=== PATIENT | male | born 1960 | race Caucasian/White ===

== ENCOUNTER 2022-12-10 03:08 | Emergency (ER) | payer MEDICARE, OTHER, SELFPAY ==
[2022-12-10] VITALS (14 sets, daily range): BP systolic 117–169; BP diastolic 72–107; PULSE 110–135; RESP 16–40; TEMP 36.2; O2SAT 82–98; BMI 33.2
--- NOTE | 2022-12-10 03:28 | CRLHL7_ITS ---
For Patients: As a result of the Century Cures Act, medical imaging exams and procedure reports are released immediately into your electronic medical record. You may view this report before your referring provider. If you have questions, please contact your health care provider. INDICATION: Dyspnea. TECHNIQUE: Chest 1 view. COMPARISON: None. FINDINGS: Cardiovascular and mediastinum: Heart size and vasculature are normal in caliber and appearance. Left-sided dual chamber cardiac pacer. Lungs and pleural spaces: Bilateral scattered interstitial markings. No pleural effusions or pneumothorax. Bones and soft tissues: No significant findings. IMPRESSION: Bilateral scattered interstitial markings, likely reflecting interstitial pulmonary edema. Dictated by Johan Wolfe MD @ 12/10/2022 4:35:33 AM (Electronically Signed)
--- NOTE | 2022-12-10 03:31 | ED.GENADULT ---
HPI - General Adult General Chief complaint: Shortness of Breath/Dyspnea Stated complaint: Trouble Breathing Time Seen by Provider: 12/10/22 03:28 Source: patient and family Mode of arrival: ambulatory Limitations: physical limitation History of Present Illness HPI narrative: 8-year-old male who reports ?cardiac and lung history? presents the emergency department, brought in by family, for evaluation of shortness of breath. He texted his daughter at around 240 this morning reporting shortness of breath, symptoms started shortly beforehand, waking him from sleep. They both report that he ?had a good day? and seemed normal this afternoon. No fever. No injury, trauma or fall. No recent productive cough. Symptoms came on fairly suddenly. He is not able recall is medications for me, reporting any gets his care through [facility]. I of course do not have access to those records. When I asked about history of arrhythmias, cardiac issues, he is not able to elaborate when asked about stents, he does confirm that he has had multiple stents in the past. Denies bypass surgery but does not know of any valvular heart disease structural heart disease or arrhythmias. He does report a history of diabetes, hypertension and heart disease. He does not know his other conditions well enough to list for me. Does have a history of COPD and/or asthma. He is a smoker. He reports that he has had his aspirin within 24 hours. Past medical history is fairly limited by his acute condition and the fact that we do not have any outside records on him. We are attempting to try to get some records through care everywhere via line a. ROS is notable for the respiratory symptoms only, specifically denies chest pain, generalized, HEENT, GI or musculoskeletal changes, otherwise negative times 12 systems. Related Data Home Medications Medication Instructions Recorded Confirmed atorvastatin 80 mg tablet 80 mg PO DAILY 12/10/22 12/10/22 blood sugar diagnostic (Contour 12/10/22 12/10/22 Next Test Strips) clindamycin HCl 300 mg capsule 300 mg PO Q6H 12/10/22 12/10/22 empagliflozin 25 mg tablet 25 mg PO DAILY 12/10/22 12/10/22 (Jardiance) ezetimibe 10 mg tablet 10 mg PO DAILY 12/10/22 12/10/22 famotidine 20 mg tablet 20 mg PO BID 12/10/22 12/10/22 furosemide 20 mg tablet 20 mg PO DAILY 12/10/22 12/10/22 glipizide 10 mg tablet, extended 10 mg PO BID 12/10/22 12/10/22 release 24 hr insulin glargine 100 unit/mL (3 unit subcut 12/10/22 mL) subcutaneous pen (Basaglar KwikPen U-100 Insulin) losartan 100 mg tablet 100 mg PO DAILY 12/10/22 12/10/22 metoprolol succinate 100 mg 100 mg PO DAILY 12/10/22 12/10/22 tablet,extended release 24 hr pen needle, diabetic 31 gauge x 12/10/22 12/10/2204/12 (UltiCare Pen Needle) semaglutide 1 mg/dose (4 mg/3 mL) mg subcut 12/10/22 subcutaneous pen injector (Ozempic) valsartan 80 mg tablet 80 mg PO DAILY 12/10/22 12/10/22 Allergies Allergy/AdvReac Type Severity Reaction Status Date / Time lisinopril Allergy Mild Cough Verified 12/10/22 03:59 metformin AdvReac Intermediate Verified 12/10/22 03:59 bupropion [From Wellbutrin] AdvReac Mild myalgia Verified 12/10/22 03:59 citalopram AdvReac Mild Dizziness Verified 12/10/22 03:59 [facility] Medical History (Updated 12/10/22 @ 05:24 by Gloria Ivory MD) NSTEMI (non-ST elevated myocardial infarction) ?I21.4 - Non-ST elevation (NSTEMI) myocardial infarction (ICD-10) H/O coronary angiogram ?Z98.890 - Other specified postprocedural states (ICD-10) Asthma ?J45.909 - Unspecified asthma, uncomplicated (ICD-10) MRSA (methicillin resistant staph aureus) culture positive ?Z22.322 - Carrier or suspected carrier of Methicillin resistant Staphylococcus aureus (ICD-10) Hypertension ?I10 - Essential (primary) hypertension (ICD-10) Adjustment disorder with depressed mood ?F43.21 - Adjustment disorder with depressed mood (ICD-10) STEVE (obstructive sleep apnea) ?G47.33 - Obstructive sleep apnea (adult) (pediatric) (ICD-10) Benign head tremor ?G25.0 - Essential tremor (ICD-10) Methamphetamine abuse ?F15.10 - Other stimulant abuse, uncomplicated (ICD-10) Asbestos exposure ?Z77.090 - Contact with and (suspected) exposure to asbestos (ICD-10) Diabetes mellitus ?E11.9 - Type 2 diabetes mellitus without complications (ICD-10) Aspiration pneumonia ?J69.0 - Pneumonitis due to inhalation of food and vomit (ICD-10) Heart failure ?I50.9 - Heart failure, unspecified (ICD-10) CAD (coronary artery disease) ?I25.10 - Atherosclerotic heart disease of [place] coronary artery without angina pectoris (ICD-10) Cardiac arrest ?I46.9 - Cardiac arrest, cause unspecified (ICD-10) Surgical History (Updated 12/10/22 @ 04:09 by Dolores Garcia RN) AICD (automatic cardioverter/defibrillator) present ?Z95.810 - Presence of automatic (implantable) cardiac defibrillator (ICD-10) Social History Smoking Status: Current every day smoker Do you use any of these nicotine containing products: None How often do you have a drink containing alcohol: 4 or more times a week How many standard drinks containing alcohol do you have on a typical day: 1 or 2 How often do you have six or more drinks on one occasion: Never AUDIT-C Alcohol total score: 4 Non-prescribed substance use: denies use Exam Const: Vital Signs, click to edit/add: Vital Signs - 24 hr 12/10/22 03:08 12/10/22 04:08 12/10/22 04:16 Temperature 97.2 F L Pulse Rate 115 H 112 H Pulse Rate [Right Pulse Oximeter] 135 H Respiratory Rate 40 H 22 24 Blood Pressure 131/75 123/72 Blood Pressure [Le ft Upper Arm] 169/99 H Pulse Oximetry 82 L 96 96 Oxygen Delivery Me thod Room Air Oxygen Flow Rate 12/10/22 04:31 12/10/22 04:46 12/10/22 05:01 Temperature Pulse Rate 113 H 114 H 111 H Pulse Rate [Right Pulse Oximeter] Respiratory Rate 16 20 20 Blood Pressure 124/79 124/79 140/87 H Blood Pressure [Le ft Upper Arm] Pulse Oximetry 97 98 97 Oxygen Delivery Me thod Oxygen Flow Rate 12/10/22 05:16 12/10/22 05:32 12/10/22 05:41 Temperature Pulse Rate 111 H 115 H Pulse Rate [Right Pulse Oximeter] Respiratory Rate 20 18 Blood Pressure 149/107 H 148/90 H Blood Pressure [Le ft Upper Arm] Pulse Oximetry 98 97 95 Oxygen Delivery Me thod Nasal Cannula Oxygen Flow Rate 2 12/10/22 05:46 12/10/22 06:01 12/10/22 06:16 Temperature Pulse Rate 110 H 113 H 116 H Pulse Rate [Right Pulse Oximeter] Respiratory Rate 18 18 18 Blood Pressure 129/77 128/78 139/86 Blood Pressure [Le ft Upper Arm] Pulse Oximetry 95 96 97 Oxygen Delivery Me thod Oxygen Flow Rate 12/10/22 06:32 12/10/22 06:46 Temperature Pulse Rate 114 H 114 H Pulse Rate [Right Pulse Oximeter] Respiratory Rate 18 17 Blood Pressure 125/76 117/77 Blood Pressure [Le ft Upper Arm] Pulse Oximetry 96 96 Oxygen Delivery Me thod Oxygen Flow Rate Documenting provider has reviewed patient's vital signs: yes Common normals: alert Other: Cooperative but appears anxious and pale. Severely dyspneic. HENMT: Common normals: normocephalic and head/scalp atraumatic Head and scalp: normocephalic and atraumatic Face and sinus: normal facial exam Mouth: oral and palatal mucosa normal Throat: posterior oropharynx normal Eye: Common normals: conjunctivae normal General eye: normal appearance of both eyes Conjunctiva: conjunctiva(e) normal Neck & C-Spine: Common normals: full ROM and no lymphadenopathy Chest: Other: Wheezing at the upper lung mendez, decreased lung sounds at the bases. Marked use of accessory muscles, sitting upright, tachypnea. Cardio: Other: Tachycardic but sounds regular. No obvious murmur. GI: Common normals: Normal to inspection, nondistended, normoactive bowel sounds present Other: Non incarcerated umbilical hernia. Bowel sounds normoactive, no mass. Liver not enlarged. Back & Pelvis: Other: Kyphosis noted but no other abnormalities to back. Extremity: Common normals: normal to inspection, normal capillary refill and no joint enlargement Neuro: Sensorium/orientation: alert Motor exam: strength 5/5 throughout and no movement abnormalities noted Other: Essential tremor of hands and face Psych: Attitude: engaged Other: Mild memory impairment, he confirms that this is normal for him. Insight seems fair. Thought process is logical. Cooperative. No agitation. No signs of intoxication Skin: Narrative: Initially pale but this improves rapidly with administration of BiPAP. No bruising or trauma. Course Course Hospital Course: Patient arrived in obvious severe acute hypoxic respiratory failure. Question etiology being cardiac related to ischemia, arrhythmia, valvular heart disease or heart failure. Question pulmonary edema, COPD exacerbation, pneumonia or other etiologies. Apparently patient has had similar symptoms back in 2019. I have had time not to go back and review those notes and see severe COPD exacerbation with suspicion for COVID pneumonia. Notes and discharge summary are fully reviewed was treated with Solu-Medrol. Based on is severe acute presentation, we are starting him on BiPAP. I am within 2 minutes patient had marked improvement in his reported symptoms as well as his tachycardia and hypoxia. Awaiting cardiac workup. Suspect he would benefit from Solu-Medrol, potentially antibiotics. Awaiting chest x-ray and EKG. Reevaluation(s) Time of Reevaluation #1: 04:01 Reevaluation #1: Tachycardia continues to improve. I was able to find some outside records from [facility] showing that the patient actually had a cardiac arrest in September of 2018. He now has an ICD placed which he did not remember and history of V-tach. He had an angioplasty with drug-eluting stent placed at that time he also had critical limb ischemia from complications from the angioplasty that improved after thrombectomy. We do have an outside EKG from that hospitalization which shows sinus rhythm but there is no septal changes like I am seeing today but this was from the [facility] back in 2017. He was tachycardic at that time as well. It looks like the tachycardia is not new as prior hospitalizations certainly documents this as well. Time of Reevaluation #2: 04:41 Reevaluation #2: I have spent the last 40 minutes on hold with [facility] and [facility]. We will not be calling [place] and happen. Patient needs transfer. Spoke with Interventional Cardiology from both of the original facilities and they both agree that he certainly does have the ischemic changes that I note as well in the septal area but is not a true STEMI, which I agree. He does however need cardiology input. Unfortunately, there are no beds available. They both give me advice to continue trending EKGs and if he does meet true STEMI criteria to call back and he would be a candidate for transfer. At this time he is not a candidate for transfer as they do not have bed availability. Male was on full bed divert even for themselves. Cities are on [place] for [employer], [employer], etc.. We will continue calling. I did receive confirmation from both providers I spoke with, both through [facility] and [place] that would be a good idea to treat the pulmonary edema with furosemide and also to start heparin drip. They are also recommending considering a nitroglycerin drip to help with the pulmonary edema if needed. Will continue to pursue transfer. Aligned I did let me put patient on a waiting list, [place] will not. Time of Reevaluation #3: 05:16 Reevaluation #3: Thus far I have spent 75 minutes in transfer. Repeat EKG is stable from the 1 that was taken around 3:00 a.m.. With able to speak with the hydro technician team from [facility], they have accepted patient for transfer, awaiting nurse to nurse call back. I have also spoken with Dr. Romero from the cardiology team. Thus far he is in agreement with our plan. Agrees with the heparin, the furosemide. He would also like for us to try for nitroglycerin drip if the pressures tolerate. I checked in with the patient and he is feeling better. He is agreeable to transfer. Additional Reevaluation(s): 0554: Patient has been weaned off of BiPAP and is tolerating 2 L nasal cannula well, maintaining oxygen saturations. Consultations Consultation #1: Repeat troponin 0.34 from 0.13. Rising as expected with duration of symptoms. Patient definitely needs transfer. Time: 05:24 Vital Signs Vital signs: Initial Vital Signs Temperature 97.2 F L 12/10/22 03:08 Temperature Source Temporal Artery Scan 12/10/22 03:08 Pulse Rate 135 H 12/10/22 03:08 Pulse Rhythm Regular 12/10/22 03:08 Respiratory Rate 40 H 12/10/22 03:08 Blood Pressure 169/99 H 12/10/22 03:08 Blood Pressure Mean 122 H 12/10/22 03:08 Blood Pressure Position Sitting 12/10/22 03:08 Pulse Oximetry 82 L 12/10/22 03:08 Oxygen Delivery Method Room Air 12/10/22 03:08 Vital Signs Temperature 97.2 F L 12/10/22 03:08 Pulse Rate 135 H 12/10/22 03:08 Respiratory Rate 40 H 12/10/22 03:08 Blood Pressure 169/99 H 12/10/22 03:08 Pulse Oximetry 82 L 12/10/22 03:08 Oxygen Delivery Method Room Air 12/10/22 03:08 Temperature 97.2 F L 12/10/22 03:08 Pulse Rate 114 H 12/10/22 06:46 Respiratory Rate 17 12/10/22 06:46 Blood Pressure 117/77 12/10/22 06:46 Pulse Oximetry 96 12/10/22 06:46 Oxygen Delivery Method Nasal Cannula 12/10/22 05:41 Oxygen Flow Rate 2 12/10/22 05:41 Medical Decision Making MDM Narrative Medical decision making narrative: Patient transferred without complication. Lab Data Lab results reviewed: Yes I reviewed the patient's lab results Lab results narrative: Positive troponins, initial blood gases showing mild acidosis, PO2 high as we originally started with high-flow oxygen and then will be transitioning down now. Kidney function, electrolytes are reassuring. AST is suggestive of potentially some underlying alcoholic liver disease. Negative COVID. Elevated troponin. EKG changes noted as below. Note additional elevation of troponins upon repeat. Labs: Lab Results 12/10/22 12/10/22 12/10/22 Range/Units 03:28 03:30 03:54 VBG pH 7.296 L (7.32-7.43) VBG pCO2 27 L (40-50) mmHG VBG pO2 172.0 H (25-47) mmHG VBG HCO3 13 L (21-28) mmol/L Sodium 140 (135-149) mmol/L Potassium 4.3 (3.6-5.1) mmol/L Chloride 109 (96-114) mmol/L Carbon Dioxide 10 L (20-32) mmol/L Anion Gap 21 H (7-15) mEq/L BUN 19 (7-30) mg/dL Creatinine 1.1 (0.5-1.5) mg/dL Estimated Creat Clear 64.44 Estimated GFR 77 ml/min Glucose 344 H (60-115) mg/dL Calcium 9.3 (8.4-10.6) mg/dL Total Bilirubin 1.1 (0.1-1.5) mg/dL Direct Bilirubin 0.1 (0.0-0.5) mg/dL AST 77 H (12-35) U/L ALT 44 (4-50) U/L Alkaline Phosphatase 53 (40-150) U/L Troponin I 0.13 H* (0.01-0.04) ng/mL C-Reactive Protein 1.2 H (0.5-1.0) mg/dL NT-Pro-B Natriuret Pep 1440 pg/mL Total Protein 8.3 (6.0-8.3) g/dL Albumin 4.7 (3.3-5.0) g/dL Urine Color (Yellow) Urine Appearance (Clear) Urine pH (5.0-8.5) Ur Specific [place] (1.000-1.030) Urine Protein (Negative) Urine Glucose (UA) (Negative) Urine Ketones (Negative) Urine Blood (Negative) Urine Nitrite (Negative) Urine Bilirubin (Negative) Urine Urobilinogen (0.2-1.0) Ur Leukocyte Esterase (Negative) Urine RBC (0-2) Urine WBC (0-5) Ur Squamous Epith Cells (None-Few) Urine Bacteria (None) Urine Opiates Screen (Negative) Ur Oxycodone Screen (Negative) Urine Methadone Screen (Negative) Ur Propoxyphene Screen (Negative) Ur Barbiturates Screen (Negative) U Tricyclic Antidepress (Negative) Ur Phencyclidine Scrn (Negative) Ur Amphetamines Screen (Negative) U Methamphetamines Scrn (Negative) U Benzodiazepines Scrn (Negative) Urine Cocaine Screen (Negative) U Marijuana (THC) Screen (Negative) Ur Drug Screen Comment SARS-CoV-2 (PCR) Negative SARS-CoV-2 (Negative) Influenza Type A (PCR) Negative PCR FLU A (Negative) Influenza Type B (PCR) Negative PCR FLU B (Negative) RSV (PCR) Negative PCR RSV (Negative) POC Troponin I 0.13 H (0.01-0.04) ng/ml 12/10/22 12/10/22 Range/Units 05:15 05:20 VBG pH (7.32-7.43) VBG pCO2 (40-50) mmHG VBG pO2 (25-47) mmHG VBG HCO3 (21-28) mmol/L Sodium (135-149) mmol/L Potassium (3.6-5.1) mmol/L Chloride (96-114) mmol/L Carbon Dioxide (20-32) mmol/L Anion Gap (7-15) mEq/L BUN (7-30) mg/dL Creatinine (0.5-1.5) mg/dL Estimated Creat Clear Estimated GFR ml/min Glucose (60-115) mg/dL Calcium (8.4-10.6) mg/dL Total Bilirubin (0.1-1.5) mg/dL Direct Bilirubin (0.0-0.5) mg/dL AST (12-35) U/L ALT (4-50) U/L Alkaline Phosphatase (40-150) U/L Troponin I (0.01-0.04) ng/mL C-Reactive Protein (0.5-1.0) mg/dL NT-Pro-B Natriuret Pep pg/mL Total Protein (6.0-8.3) g/dL Albumin (3.3-5.0) g/dL Urine Color Yellow (Yellow) Urine Appearance Clear (Clear) Urine pH 5.0 (5.0-8.5) Ur Specific [place] 1.015 (1.000-1.030) Urine Protein Trace A (Negative) Urine Glucose (UA) 2+ A (Negative) Urine Ketones Negative (Negative) Urine Blood Trace-intact A (Negative) Urine Nitrite Negative (Negative) Urine Bilirubin Negative (Negative) Urine Urobilinogen 0.2 (0.2-1.0) Ur Leukocyte Esterase Negative (Negative) Urine RBC 0-2 (0-2) Urine WBC 0-2 (0-5) Ur Squamous Epith Cells Few (None-Few) Urine Bacteria None (None) Urine Opiates Screen Negative (Negative) Ur Oxycodone Screen Negative (Negative) Urine Methadone Screen Negative (Negative) Ur Propoxyphene Screen Negative (Negative) Ur Barbiturates Screen Negative (Negative) U Tricyclic Antidepress Negative (Negative) Ur Phencyclidine Scrn Negative (Negative) Ur Amphetamines Screen Negative (Negative) U Methamphetamines Scrn Negative (Negative) U Benzodiazepines Scrn Negative (Negative) Urine Cocaine Screen Negative (Negative) U Marijuana (THC) Screen Negative (Negative) Ur Drug Screen Comment See Note SARS-CoV-2 (PCR) (Negative) Influenza Type A (PCR) (Negative) Influenza Type B (PCR) (Negative) RSV (PCR) (Negative) POC Troponin I 0.34 H (0.01-0.04) ng/ml Imaging Data Chest x-ray: Attestation: I have reviewed the pertinent imaging results. My impression: Pulmonary edema Radiologist's impression: IMPRESSION: Bilateral scattered interstitial markings, likely reflecting interstitial pulmonary edema. ECG Data Attestation: I personally reviewed and interpreted this ECG as follows: Prior ECG tracings: not available for review Interpretation: Sinus tachycardia, rate of 120. There is some mild nonsignificant ST depression in V5 with slight ST elevation in V1, V2 V3. Questioning an early septal infarct.. There is no prior comparison, which is unexpected considering he was previously hospitalized. Critical Care Time Critical Care Time Total Critical Care Time in Minutes: 90 Discharge Plan Discharge Clinical Impression: Acute respiratory failure with hypoxia, Acute Q wave myocardial infarction Patient Disposition: Xfer Other Discharge Location: [facility] Condition: Guarded Prescriptions: No Action atorvastatin 80 mg tablet 80 mg PO DAILY clindamycin HCl 300 mg capsule 300 mg PO Q6H glipizide 10 mg tablet extended release 24hr 10 mg PO BID metoprolol succinate 100 mg tablet extended release 24 hr 100 mg PO DAILY valsartan 80 mg tablet 80 mg PO DAILY (DME) Contour Next Test Strips Strip MISCELLANEOUS famotidine 20 mg tablet 20 mg PO BID furosemide 20 mg tablet 20 mg PO DAILY losartan 100 mg tablet 100 mg PO DAILY (DME) pen needle, diabetic [UltiCare Pen Needle] 31 gauge x 1/4 needle MISCELLANEOUS Patient Comments: [NO ORIGINAL SIG] ezetimibe 10 mg tablet 10 mg PO DAILY insulin glargine [Basaglar KwikPen U-100 Insulin] 100 unit/mL (3 mL) insulin pen subcut Jardiance 25 mg tablet 25 mg PO DAILY Ozempic 1 mg/dose (4 mg/3 mL) pen injector subcut Stand Alone Forms: [facility] Info Instructions
[2022-12-10 03:44] LABS: HCO3 VBG 13 mmol/L (21-28); PCO2 VBG 27 mmHG (40-50); pH VBG 7.296 (7.32-7.43)
[2022-12-10 04:02] LABS: Troponin, Point-of-Care* 0.13 ng/ml (0.01-0.04)
[2022-12-10 04:08] LABS: Albumin* 4.7 g/dL (3.3-5.0); Chloride* 109 mmol/L (96-114); Sodium* 140 mmol/L (135-149)
[2022-12-10 04:09] LABS: Potassium* 4.3 mmol/L (3.6-5.1)
[2022-12-10 04:10] LABS: Creatinine* 1.1 mg/dL (0.5-1.5); Est. Creatinine Clearance* 64.44; Estimated Glomerular Filt Rate 77 ml/min
[2022-12-10 04:11] LABS: Alanine Aminotransferase* 44 U/L (4-50); Alkaline Phosphatase* 53 U/L (40-150); Anion Gap 21 mEq/L (7-15); Aspartate Amino Transferase* 77 U/L (12-35); Bilirubin Direct* 0.1 mg/dL (0.0-0.5); Bilirubin Total* 1.1 mg/dL (0.1-1.5); Blood Urea Nitrogen* 19 mg/dL (7-30); Carbon Dioxide* 10 mmol/L (20-32); Glucose* 344 mg/dL (60-115); Total Protein* 8.3 g/dL (6.0-8.3)
[2022-12-10 04:12] LABS: Calcium* 9.3 mg/dL (8.4-10.6)
[2022-12-10 04:14] LABS: C Reactive Protein* 1.2 mg/dL (0.5-1.0)
[2022-12-10 04:37] LABS: PCR FLU A Negative PCR FLU A (Negative); PCR FLU B Negative PCR FLU B (Negative); PCR RSV Negative PCR RSV (Negative); SARS PCR* Negative SARS-CoV-2 (Negative)
[2022-12-10 04:41] LABS: NT Pro B Type NatriureticPept* 1440 pg/mL
[2022-12-10] MEDS: FUROSEMIDE 10 MG/ML inj 20 MG IVP (04:41)
[2022-12-10 04:46] LABS: Troponin I* 0.13 ng/mL (0.01-0.04)
[2022-12-10] MEDS: HEPARIN 5,000 UNIT/0.5 ML INJ 4000 UNIT IVP (04:47)
[2022-12-10 05:25] LABS: Appearance Urine Clear (Clear); Bilirubin Urine Negative (Negative); Blood Urine Trace-intact (Negative); Color Urine Yellow (Yellow); Glucose Urine 2+ (Negative); Ketones Urine Negative (Negative); Leukocyte Esterase Urine Negative (Negative); Nitrite Urine Negative (Negative); Protein Urine Trace (Negative); Specific Gravity Urine 1.015 (1.000-1.030); Urobilinogen Urine 0.2 (0.2-1.0)
[2022-12-10 05:31] LABS: RBC Urine 0-2 (0-2); Squamous Epithelial Cell Urine Few (None-Few); WBC Urine 0-2 (0-5)
[2022-12-10 05:32] LABS: Amphetamine Screen Urine Negative (Negative); Barbiturate Screen Urine Negative (Negative); Benzodiazepines Screen Urine Negative (Negative); Cannabinoid Screen Urine Negative (Negative); Cocaine Screen Urine Negative (Negative); Methadone Screen Urine Negative (Negative); Methamphetamines Screen Urine Negative (Negative); Opiate Screen Urine Negative (Negative); Oxycodone Screen Urine Negative (Negative); Phencyclidine Screen Urine Negative (Negative); Tricyclic Antidepressant Urine Negative (Negative)
[2022-12-10 05:39] LABS: Troponin, Point-of-Care* 0.34 ng/ml (0.01-0.04)
--- NOTE | 2022-12-10 05:39 | PC.NURSE ---
patient removed off bipap and onto nasal canula 2L, sats remain upper 90s.
--- NOTE | 2022-12-10 05:58 | PC.NURSE ---
report given to Sara RN at [facility]. patient going to room Heart [id number]
== END 2022-12-10 07:32 | disposition other institution (70) ==
PROVIDERS: Emergency Provider Family Medicine
DX: J96.01 Acute respiratory failure with hypoxia (principal); I21.3 ST elevation (STEMI) myocardial infarction of unspecified site
CPT/HCPCS: 36415; 71045; 80048; 80076; 80306; 81003; 81015; 82803; 83880; 84484; 86140; 87631; 93005; 94660; 96374; 96375; 99284; 99291; 99292; J1644; J1940

== ENCOUNTER 2022-12-10 07:27 | Outpatient (CLI) | payer MEDICARE, OTHER, SELFPAY | END 2022-12-10 07:28 | disposition home or self-care (01) | PROVIDERS: Visit Provider Family Medicine | DX: I21.3 ST elevation (STEMI) myocardial infarction of unspecified site (principal); J96.01 Acute respiratory failure with hypoxia | CPT/HCPCS: A0425; A0426 ==